=== PATIENT | female | born 1980 | race Caucasian/White ===

== ENCOUNTER → 2017-03-12 | Outpatient (CLI) | payer OTHER ==
--- NOTE | 2017-03-12 14:08 | RAD ---
DATE: 03/12/2017 EXAM: BREAST RIGHT, DIGITAL DIAGNOSTIC BILATERAL HISTORY: Right breast lump for 2 to 3 weeks. COMPARISON: None. This study was interpreted with the benefit of Computerized Aided Detection (CAD). FINDINGS: Digital MLO and CC mammograms of both breasts were obtained. An additional CC digital mammogram of the right breast was obtained. This is patient's baseline study. A radiopaque marker was placed in the right breast in the area where the patient feels a palpable abnormality. The breast parenchyma is composed of scattered fibroglandular densities which can obscure a lesion on mammography (breast density code B). No spiculated mass is seen. No malignant appearing calcification or area of architectural distortion is noted. Several benign-appearing calcifications are seen within both breasts. A vague area of increased density is seen within the posterior aspect of the lower inner quadrant of the right breast in the area where the patient feels a palpable abnormality. Ultrasound of this area was performed). At the 6:00 position 7 cm from the nipple an oval-shaped hypoechoic area is seen which measures 1.2 cm in greatest diameter. This appears to correspond to the patient's palpable and mammographic abnormality. Its ultrasound appearance is consistent with a probably benign finding (such as a fibroadenoma). A 6 mm intramammary lymph node is seen within the right breast at the 6:30 position 10 cm from the nipple. No additional mass lesion is seen. IMPRESSION: 1.2 cm probably benign hypoechoic area is seen within the right breast at the 6:00 position which corresponds to the patient's palpable and mammographic abnormality. A repeat ultrasound of the right breast in 6 months is recommended to document its stability. BI-RADS CATEGORY: 3 PROBABLY BENIGN FINDING(S)-SHORT INTERVAL FOLLOW-UP SUGGESTED RECOMMENDED FOLLOW-UP: 6M 6 MONTH FOLLOW-UP PQRS compliance statement: Patient information was entered into a reminder system with a target due date a follow-up ultrasound of the right breast on September 11, 2017. Mammography is a sensitive method for finding small breast cancers, but it does not detect them all and is not a substitute for careful clinical examination. A negative mammogram does not negate a clinically suspicious finding and should not result in delay in biopsying a clinically suspicious abnormality. "Our facility is accredited by the [employer] Mammography Program."
== END | disposition home or self-care (01) ==
LOC: MAMMO 12:16
PROVIDERS: ATTEND Obstetrics & Gynecology
DX: N63 Unspecified lump in breast (principal)
CPT/HCPCS: 76641; G0204; 77066

== ENCOUNTER → 2018-09-06 | Outpatient (CLI) | payer OTHER ==
--- NOTE | 2018-09-06 15:36 | RAD ---
Right breast ultrasound, 09/06/2018: History: Breast nodule with recent drainage The area of clinical concern at the 5:00 location was carefully scanned. Approximately 10 cm from the nipple there is a small hypoechoic process which appears to lie within the skin. Some of its margins are smooth while others are less well-defined. The better defined component measures 5 x 3 mm while there is surrounding less well-defined streaky decreased echogenicity measuring approximately 10 mm. There is vascularity in the adjacent skin but not within this process. The appearance suggests an inflammatory process such as a ruptured inclusion cyst or focal infection. No underlying breast mass is seen. Clinical surveillance and possibly sonographic follow-up is suggested.
== END | disposition home or self-care (01) ==
LOC: US 14:23
PROVIDERS: ATTEND Surgery
DX: N63.13 Unspecified lump in the right breast, lower outer quadrant (principal)
CPT/HCPCS: 76641